=== PATIENT | male | born 1945 | race Two or more races ===

== ENCOUNTER 2017-07-04 10:41 | Outpatient (CLI) | payer OTHER ==
[~2017-07-04 10:41] MED LIST: FLONASE16 GM NS
== END 2017-07-04 10:49 | disposition home or self-care (01) ==
LOC: RAD 501 10:41
DX: M75.122 Complete rotator cuff tear or rupture of left shoulder, not specified as traumatic (principal); S40.912A Unspecified superficial injury of left shoulder, initial encounter

== ENCOUNTER 2017-07-14 10:32 | Outpatient (CLI) | payer OTHER | END 2017-07-14 11:05 | disposition home or self-care (01) | LOC: SONOGRAMA 10:32 | DX: M25.512 Pain in left shoulder (principal) ==

== ENCOUNTER 2018-02-24 14:03 | Outpatient (CLI) | payer OTHER | END 2018-02-24 14:17 | disposition home or self-care (01) | LOC: NUCLEAR 14:03 | DX: M85.9 Disorder of bone density and structure, unspecified (principal); M81.0 Age-related osteoporosis without current pathological fracture ==

== ENCOUNTER 2018-02-25 11:18 | Outpatient (CLI) | payer OTHER | END 2018-02-25 11:30 | disposition home or self-care (01) | LOC: SONOGRAMA 11:18 | DX: M75.122 Complete rotator cuff tear or rupture of left shoulder, not specified as traumatic (principal) ==

== ENCOUNTER 2018-04-16 07:32 | Outpatient (CLI) | payer OTHER ==
[~2018-04-16 07:32] MED LIST changes: +ATACAND4 MG
== END 2018-04-16 08:03 | disposition home or self-care (01) ==
LOC: RAD 07:32
DX: D64.89 Other specified anemias (principal); D68.8 Other specified coagulation defects; N39.0 Urinary tract infection, site not specified; E88.89 Other specified metabolic disorders; A49.02 Methicillin resistant Staphylococcus aureus infection, unspecified site; I49.8 Other specified cardiac arrhythmias; Z76.89 Persons encountering health services in other specified circumstances; M81.8 Other osteoporosis without current pathological fracture; E83.42 Hypomagnesemia; E56.1 Deficiency of vitamin K; M85.88 Other specified disorders of bone density and structure, other site

== ENCOUNTER 2019-04-05 12:47 | Outpatient (CLI) | payer OTHER | END 2019-04-05 12:49 | disposition home or self-care (01) | LOC: RAD 12:47 | DX: S20.211A Contusion of right front wall of thorax, initial encounter (principal) ==

== ENCOUNTER 2019-08-03 08:16 | Outpatient (CLI) | payer OTHER | END 2019-08-03 09:09 | disposition home or self-care (01) | LOC: NUCLEAR 08:16 | DX: I70.213 Atherosclerosis of native arteries of extremities with intermittent claudication, bilateral legs (principal); I70.90 Unspecified atherosclerosis; I87.2 Venous insufficiency (chronic) (peripheral) ==

== ENCOUNTER 2019-08-04 11:25 | Outpatient (CLI) | payer OTHER | END 2019-08-04 14:00 | disposition home or self-care (01) | LOC: NUCLEAR 11:25 | DX: I70.90 Unspecified atherosclerosis (principal); I70.213 Atherosclerosis of native arteries of extremities with intermittent claudication, bilateral legs ==

== ENCOUNTER 2019-11-17 16:22 | Emergency (ER) | payer OTHER ==
[~2019-11-17] VITALS: Ht 172.7 cm; Wt 87.1 kg
== END 2019-11-17 22:17 | disposition home or self-care (01) ==
LOC: ER 16:22
DX: S62.634A Displaced fracture of distal phalanx of right ring finger, initial encounter for closed fracture (principal); W23.0XXA Caught, crushed, jammed, or pinched between moving objects, initial encounter; Y93.89 Activity, other specified; Y92.89 Other specified places as the place of occurrence of the external cause; Y99.8 Other external cause status

== ENCOUNTER 2020-09-26 08:23 | Outpatient (CLI) | payer OTHER | END 2020-09-26 08:50 | disposition home or self-care (01) | LOC: SONOGRAMA 08:23 → MAMO-SONO 08:30 → SONOGRAMA 08:50 | PROVIDERS: ATTEND Internal Medicine | DX: G30.1 Alzheimer's disease with late onset (principal); F02.80 Dementia in other diseases classified elsewhere, unspecified severity, without behavioral disturbance, psychotic disturbance, mood disturbance, and anxiety; R41.3 Other amnesia; S46.002A Unspecified injury of muscle(s) and tendon(s) of the rotator cuff of left shoulder, initial encounter | CPT/HCPCS: 70551 ==

== ENCOUNTER 2020-10-05 07:15 | Outpatient (CLI) | payer OTHER | END 2020-10-05 07:18 | disposition home or self-care (01) | LOC: NUCLEAR 07:15 | PROVIDERS: ATTEND Psychiatry & Neurology Neurology | DX: G45.1 Carotid artery syndrome (hemispheric) (principal); G30.1 Alzheimer's disease with late onset ==

== ENCOUNTER 2021-01-02 08:50 | Outpatient (CLI) | payer OTHER | END 2021-01-02 09:21 | disposition home or self-care (01) | LOC: SONOGRAMA 08:50 | PROVIDERS: ATTEND Urology | DX: N28.89 Other specified disorders of kidney and ureter (principal); R35.0 Frequency of micturition; N40.1 Benign prostatic hyperplasia with lower urinary tract symptoms ==

== ENCOUNTER 2021-11-22 10:54 | Inpatient (IN) | payer OTHER ==
[~2021-11-22] VITALS: Ht 264.2 cm; Wt 85.3 kg
[2021-11-22] MEDS ORDERED: COZAAR25 MG (11:13)
[2021-11-22] MEDS ORDERED: SIMVASTATIN5 MG (11:13)
[2021-11-22] MEDS ORDERED: ARICEPT5 MG (11:14)
[2021-11-22] MEDS ORDERED: TAMS0.4C (11:14)
== END 2021-11-23 13:00 | disposition home or self-care (01) | DRG 948 ==
LOC: ER 10:54 → SEC-K 18:59
PROVIDERS: ADMIT Internal Medicine; ATTEND Internal Medicine
PROC: BW28ZZZ Computerized Tomography (CT Scan) of Head (ICD-10-PCS; principal; 2021-11-22)
PROC: B246ZZZ Ultrasonography of Right and Left Heart (ICD-10-PCS; 2021-11-22)
PROC: B345ZZZ Ultrasonography of Bilateral Common Carotid Arteries (ICD-10-PCS; 2021-11-22)
PROC: B348ZZZ Ultrasonography of Bilateral Internal Carotid Arteries (ICD-10-PCS; 2021-11-22)
PROC: 4A12X4Z Monitoring of Cardiac Electrical Activity, External Approach (ICD-10-PCS; 2021-11-22)
PROC: B030ZZZ Magnetic Resonance Imaging (MRI) of Brain (ICD-10-PCS; 2021-11-22)
DX: R41.82 Altered mental status, unspecified (principal); F17.290 Nicotine dependence, other tobacco product, uncomplicated; Z20.822 Contact with and (suspected) exposure to COVID-19; G62.89 Other specified polyneuropathies; H90.3 Sensorineural hearing loss, bilateral
CPT/HCPCS: 70551

== ENCOUNTER 2022-02-06 07:28 | Outpatient (CLI) | payer OTHER ==
[~2022-02-06 07:28] MED LIST changes: +ARICEPT5 MG; +COZAAR25 MG; +SIMVASTATIN5 MG; +TAMS0.4C
== END 2022-02-06 07:35 | disposition home or self-care (01) ==
LOC: SONOGRAMA 07:28
PROVIDERS: ATTEND Internal Medicine
DX: R31.9 Hematuria, unspecified (principal); N40.1 Benign prostatic hyperplasia with lower urinary tract symptoms; R10.9 Unspecified abdominal pain